=== PATIENT | male | born 1950 | race African-American/Black ===

== ENCOUNTER 2025-02-14 14:48 | Emergency (ER) | payer OTHER ==
[~2025-02-14] VITALS: Ht 188 cm; Wt 99.1 kg
[2025-02-14 14:50] VITALS: BP 95/64; RESP 18; TEMP 98.2; O2SAT 98
[2025-02-14 15:01] VITALS: PULSE 52
--- NOTE | 2025-02-14 15:08 | ECG ---
[facility] Test Date: 2025-02-14 Test Time: 15:01:59 Pat Name: ONHEMI GEORGE Department: ED Room: Gender: Mesh Cutter: VELIA : 1950 Requested By: HORACIO LAO Order Number: [id number] Reading MD: Brian Song Measurements Intervals [place] Rate: 52 P: 58 NV: 165 QRS: 62 QRSD: 100 T: 64 QT: 484 QTc: 451 Interpretive Statements Sinus rhythm Probable left atrial enlargement Electronically Signed On 02-14-2025 15:19:27 PDT by Brian Song Please click the below link to view image of tracing.
--- NOTE | 2025-02-14 15:14 | ED.PDOC ---
Musculoskeletal HPI Comments 74 year old male presents to the D with a chief complaint of LT arm numbness onset last night. Patient states he is currently experiencing LT arm numbness, began last night while he was brushing his teeth. Patient is also experiencing sore throat, blurred vision, chest pain. Patient states he was driving to [facility], symptoms worsened, was advised to go to ED. Denies fever, chills, shortness of breath, headache, dizziness, nausea, vomiting, diarrhea. No other symptoms or modifying factors present at this time. Chief Complaint: Upper Extremity Time Seen by MD: 15:05 Reviewed Notes: Medications, Allergies Allergies: Coded Allergies: NO KNOWN ALLERGIES (Unverified , 02/14/25) Information Source: Patient Mode of Arrival: Ambulatory Location: Left Extremity Location: Arm Timing: Hours Prehospital treatment: None Severity: Moderate Able to Move Extremity: Yes Bear Weight: Limited Pain: Moderate Mechanism: Spontaneous Circumstances: Spontaneous Onset of Symptoms: Spontaneous DVT Risk Factors: NONE Associated signs and symptoms: Numbness Past Medical History PAST MEDICAL HISTORY: Denies Surgical History: Denies all surgeries Family History Family History: Reviewed,noncontributory to illness, No family hx of Cancer, No family hx of DM, No family hx of Heart [place], No family hx of HTN, No family hx ofKidney [place], No family hx of Liver [place], No family hx of Lung [place], No family hx of Stroke Social History Smoker: Non-Smoker Alcohol: Denies ETOH Use Drugs: Denies Drug Use Lives In: Home Constitutional: denies: chills, diaphoresis, fatigue, fever, malaise, sweats, weakness, others EENTM: reports: blurred vision; denies: double vision, ear bleeding, ear discharge, ear drainage, ear pain, ear ringing, eye pain, eye redness, hearing loss, mouth pain, mouth swelling, nasal discharge, nose bleeding, nose congestion, nose pain, photophobia, tearing, throat pain, throat swelling, voice changes, others Cardiovascular: reports: chest pain; denies: dizzy spells, diaphoresis, Dyspnea on exertion, edema, irregular heart beat, left arm pain, lightheadedness, palpitations, PND, syncope, others Gastrointestinal: denies: abdomen distended, abdominal pain, blood streaked bowels, constipated, diarrhea, dysphagia, difficulty swallowing, hematemesis, melena, nausea, poor appetite, poor fluid intake, rectal bleeding, rectal pain, vomiting, others Genitourinary: denies: burning, dysuria, flank pain, frequency, hematuria, incontinence, penile discharge, penile sore, pain, testicle pain, testicle swelling, urgency, others Neurological: denies: dizziness, fainting, headache, left sided numbness, left sided weakness, numbness, paresthesia, pre-existing deficit, right sided numbness, right sided weakness, seizure, speech problems, tingling, tremors, weakness, others Musculoskeletal: reports: others (Lt arm numbness); denies: back pain, gout, joint pain, joint swelling, muscle pain, muscle stiffness, neck pain Integumetry: denies: bruises, change in color, change in hair/nails, dryness, laceration, lesions, lumps, rash, wounds, others Allergic/Immunocompromised: denies: Difficulty Healing, Frequent Infections, Hives, Itching, others Hematologic/Lymphatic: denies: anemia, blood clots, easy bleeding, easy bruising, swollen glands, others Endocrine: denies: excessive hunger, excessive sweating, excessive thirst, excessive urination, flushing, intolerance to cold, intolerance to heat, unexplained weight gain, unexplained weight loss, others Psychiatric: denies: anxiety, bipolar disorder, depression, hopeless, panic disorder, schizophrenia, sleepless, suicidal, others All Other Systems: Reviewed and Negative Physical Exam General Appearance: Moderate Distress, Normal HEENT: Normal ENT Inspection, Pharynx Normal, TMs Normal Neck: Full Range of Motion, Non-Tender, Normal, Normal Inspection Respiratory: Chest Non-Tender, Lungs Clear, No Accessory Muscle Use, No Respiratory Distress, Normal Breath Sounds Cardiovascular: No Edema, No JVD, No Murmur, No Gallop, Normal Peripheral Pulses, Regular Rate/Rhythm Breast Exam: Deferred Gastrointestinal: No Organomegaly, Non Tender, No Pulsatile Mass, Normal Bowel Sounds, Soft Genitalia: Deferred Pelvic: Deferred Rectal: Deferred Extremities: No calf tenderness, Normal capillary refill, Normal inspection, Normal range of motion, Non-tender, No pedal edema Musculoskeletal : Apperance: Normal Neurologic: Alert, safety investigator II-XII nml as Tested, No Motor Deficits, Normal Affect, Normal Mood, No Sensory Deficits Cerebellar Function: Normal Reflexes: Normal Skin: Dry, Normal Color, Warm Peripheral Pulses: 3+ Radial (R), 3+ Radial (L) Lymphatic: No Adenopathy Was a procedure done? Was a procedure done?: No Differential Diagnosis EXT Differential Diagnosis: Sprain, Strain X-Ray, Labs, Meds, VS Vital Signs Date Time Temp Pulse Resp B/P (MAP) Pulse Ox O2 Delivery O2 Flow Rate FiO2 02/14/25 15:01 52 02/14/25 14:50 98.2 54 18 95/64 98 98.2 Lab Test 02/14/25 15:10 Range/Units Troponin I High Sensitivity 3 L </=54 ng/L Patient alert. Came in because of dizziness. CT of the head reviewed does not show any acute changes. Vitals stable. Answering all questions. Cardiac marker within normal limits. Ambulating. Good muscle strength. Denies chest pain. No leg swelling. Denies shortness a breath. Explained to the patient. Was told to follow up with his primary care physician. Was told to come back there is any problem. Time of 1ST Reevaluation: 15:35 Reevaluation 1ST: Unchanged Patient Education/Counseling: Diagnosis, Treatment, Prognosis Family Education/Counseling: No Family Present Departure 1 Departure Time of Disposition: 17:14 Impression: Primary Impression: Autonomic disorder Disposition: 01 HOME / SELF CARE / HOMELESS Condition: Good Discharged With: Self Critical Care Note Critical Care Time?: No Stability Stability form required: No Heart Score Heart Score: Heart Score Response (Comments) Value History Slightly Suspicious 0 EKG Normal 0 Age >65 2 Risk Factors 1 or 2 risk factors 1 Troponin Normal limit 0 Total 3 I personally scribed for HORACIO LAO MD ([email or web address]) on 02/14/25 at 15:14. Electronically submitted by Evangelina Ny ([email or web address]). HORACIO LAO MD Feb 14, 2025 15:14
--- NOTE | 2025-02-14 16:07 | DVH ---
COMPUTERIZED TOMOGRAPHY OF THE HEAD WITHOUT CONTRAST REASON FOR STUDY: TIA COMPARISON: None TECHNIQUE: Helical tomographic scans were obtained through the brain. 2-D coronal and sagittal refor matted images are provided. Radiation optimization: All CT scans at this facility use at least one of these dose optimization techniques: Automated exposure control mA and/or kV adjustment per patient s ize (includes targeted exams where dose is matched to clinical indication) or iterative reconstructio n. RADIATION DOSE: CTDI: 60.71 mGy DLP: 1094.46 mGy-cm FINDINGS: No suspicious intracranial hyperdensity to suggest acute blood. There are bilateral basal ganglia senescent calcifications. There is no mass effect nor midline shift. There is no hydrocephalu s. The suprasellar cistern is intact. The calvarium is intact. The visualized mastoid air cells and p aranasal sinuses are clear. IMPRESSION: No acute intracranial abnormality.
== END 2025-02-14 17:15 | disposition home or self-care (01) ==
LOC: ER 14:48
DX: G90.9 Disorder of the autonomic nervous system, unspecified (principal); R07.9 Chest pain, unspecified
CPT/HCPCS: 36415; 70450; 84484; 93005